=== PATIENT | male | born 1975 | race Caucasian/White ===

== ENCOUNTER 2017-03-07 20:14 | Emergency (ER) | payer SELFPAY ==
[2017-03-07 20:41] VITALS: RESP 20; O2SAT 99
--- NOTE | 2017-03-07 21:01 | C.PDOC ---
History Of Present Illness The patient, a 41 y/o male, presents to the ED for evaluation of right upper quadrant abdominal pain which has been occurring in intermittent episodes for a few weeks. Patient denies fever, chills, nausea, and vomiting. Chief Complaint (Nursing): Abdominal Pain History Per: Patient History/Exam Limitations: no limitations Onset/Duration Of Symptoms: Intermittent Episodes (few weeks ) Current Symptoms Are (Timing): Still Present Location Of Pain/Discomfort: RUQ Quality Of Discomfort: "Pain" Associated Symptoms: denies: Fever, Chills, Nausea, Vomiting Additional History Per: Patient Past Medical History Reviewed: Historical Data, Nursing Documentation, Vital Signs Vital Signs: Last Vital Signs Temp 98 F 03/07/17 20:38 Pulse 62 03/07/17 20:38 Resp 20 03/07/17 20:38 BP 154/98 H 03/07/17 20:38 Pulse Ox 99 03/07/17 21:01 - Medical History PMH: No Chronic Diseases Surgical History: No Surg Hx Family History: States: Unknown Family Hx - Social History Hx Alcohol Use: Yes Hx Substance Use: No - Immunization History Hx Tetanus Toxoid Vaccination: No Hx Influenza Vaccination: No Hx Pneumococcal Vaccination: No Review Of Systems Except As Marked, All Systems Reviewed And Found Negative. Constitutional: Negative for: Fever, Chills Gastrointestinal: Positive for: Abdominal Pain (right upper quadrant ). Negative for: Nausea, Vomiting Physical Exam - Physical Exam Appears: Non-toxic, No Acute Distress Skin: Normal Color, Warm, Dry Head: Atraumatic, Normacephalic Eye(s): bilateral: Normal Inspection Oral Mucosa: Moist Neck: Supple Chest: Symmetrical, No Deformity, No Tenderness Cardiovascular: Rhythm Regular, No Murmur Respiratory: Normal Breath Sounds, No Rales, No Rhonchi, No Wheezing Gastrointestinal/Abdominal: Soft, Tenderness (mild to right upper quadrant on palpation ), No Guarding, No Rebound, No Other (no tenderness to b/l lower quadrants ) Back: Normal Inspection, No Vertebral Tenderness, No Paraspinal Tenderness Extremity: Normal ROM, Capillary Refill (less than 2 seconds ) Neurological/Psych: Oriented x3, Normal Speech, Normal Cognition Gait: Steady ED Course And Treatment - Laboratory Results Result Diagrams: 03/07/17 20:53 03/07/17 20:53 O2 Sat by Pulse Oximetry: 99 (on RA) Pulse Ox Interpretation: Normal Progress Note: labs and US Abdomen ordered and reviewed. Patient received Bentyl IM. Disposition Counseled Patient/Family Regarding: Diagnosis - Disposition Referrals: [facility] [Outside] Disposition: HOME/ ROUTINE Disposition Time: 23:32 Condition: STABLE Prescriptions: Pantoprazole Sodium [Protonix] 40 mg PO HS #15 ect Instructions: Abdominal Pain (ED), Gastritis (GEN), Diet for Ulcers and Gastritis (ED) - POA Present On Arrival: None - Clinical Impression Clinical Impression: Abdominal pain, Gastritis - Scribe Statement The provider has reviewed the documentation as recorded by the Scribe (Jennifer Henning) Provider Attestation: All medical record entries made by the Scribe were at my direction and personally dictated by me. I have reviewed the chart and agree that the record accurately reflects my personal performance of the history, physical exam, medical decision making, and the department course for this patient. I have also personally directed, reviewed, and agree with the discharge instructions and disposition.
[2017-03-07 21:10] LABS: BASO # 0.1 K/uL (0.0-0.2); BASO % 0.9 % (0.0-2.0); EOS # 0.3 K/uL (0.0-0.7); EOS % 2.7 % (0.0-4.0); LYMPH % 30.8 % (20.0-40.0); MEAN CORPUSCULAR HEMOGLOBIN 32.4 pg (27.0-31.0); MEAN CORPUSCULAR HGB CONC 34.1 g/dL (33.0-37.0); MEAN PLATELET VOLUME 9.3 fL (7.2-11.7); MONO % 7.6 % (0.0-10.0); RED CELL DISTRIBUTION WIDTH 13.3 % (11.5-14.5)
[2017-03-07 21:14] LABS: CHLORIDE 97 mmol/L (98-107)
[2017-03-07 21:15] LABS: POTASSIUM 3.5 mmol/L (3.6-5.2); SODIUM 135 mmol/L (132-148)
[2017-03-07 21:17] LABS: ALB/GLOB RATIO 1.3 (1.0-2.1); ALKALINE PHOSPHATASE 61 U/L (38-126); ALT/SGPT 33 U/L (21-72); AST/SGOT 21 U/L (17-59); BILIRUBIN,TOTAL 0.7 mg/dL (0.2-1.3); BLOOD UREA NITROGEN 15 mg/dL (9-20); CARBON DIOXIDE 26 mmol/L (22-30); GFR AFRICAN-AMERICAN > 60; GLUCOSE,RANDOM 79 mg/dL (75-110); TOTAL PROTEIN 7.8 g/dL (6.3-8.3)
[2017-03-07 21:18] LABS: CALCIUM 9.1 mg/dl (8.6-10.4)
[2017-03-07 22:32] LABS: RBC URINE < 1 /hpf (0-3); URINE BILIRUBIN NEGATIVE (NEGATIVE); URINE BLOOD NEGATIVE (NEGATIVE); URINE COLOR Straw (YELLOW); URINE GLUCOSE (UA) NORMAL (Normal); URINE KETONE NEGATIVE (NEGATIVE); URINE LEUKOCYTE ESTERASE NEG Leu/uL (Negative); URINE PROTEIN NEGATIVE (NEGATIVE); URINE UROBILINOGEN NORMAL mg/dL (0.2-1.0); WBC URINE < 1 /hpf (0-5)
[2017-03-07 23:48] VITALS: BP 149/72; PULSE 77; TEMP 98.6
--- NOTE | 2017-03-08 10:01 | US ---
Right upper quadrant abdominal ultrasound History: Abdominal pain. Comparison: None available. Technique: Real-time sonography was performed through the right upper quadrant of the abdomen. Findings: Liver: 18.6 centimeters in length. Increased echogenicity suggestive for fatty infiltration versus hepatic parenchymal disease. Clinical correlation. Gallbladder: Contracted. No calculi or sludge. Normal wall thickness. Negative sonographic Shaffer's sign. Common bile duct measures 5 millimeters, within normal limits. Pancreas not well visualized. Visualized aorta and IVC are preserved. Right kidney: 11.1 x 4.2 x 5.3 centimeters. No calculi or hydronephrosis. Impression: Contracted gallbladder. No gross calculi or sludge. Negative sonographic Shaffer's sign. Prominent liver with diffuse increased echogenicity suggestive for fatty infiltration versus hepatic parenchymal disease. Clinical correlation. Pancreas not well visualized. These findings were preliminarily reported at 10:02 p.m. on 03/07/[address] Chelo Marquez from [facility].
== END 2017-03-07 23:48 | disposition home or self-care (01) ==
LOC: C.ER 20:14
DX: K29.70 Gastritis, unspecified, without bleeding (principal)
CPT/HCPCS: 76705; 80053; 81001; 83690; 85025; 96372; 99284; J0500